=== PATIENT | male | born 1950 | race American Indian/Alaskan Native ===

== ENCOUNTER 2020-07-03 09:49 | Day surgery (SDC) | payer MEDICARE ==
[2020-07-03] MEDS ORDERED: SODIUM CHLORIDE 0.9% 500 ML 0 ML ONE (10:55)
[2020-07-03 11:07] LABS: Basophils # (Auto) 0.1 K/mm3 (0.0-0.1); Basophils % (Auto) 1.1 % (0.0-1.8); Eosinophils # (Auto) 0.2 K/mm3 (0.0-0.4); Hematocrit 27.6 % (35.5-45.6); Hemoglobin 9.2 gm/dl (11.8-15.2); Lymphocytes % (Auto) 12.1 % (13.4-35.0); Mean Corpuscular HGB Conc 33 % (32-34); Mean Corpuscular Volume 90 fl (84-94); Monocytes % (Auto) 11.2 % (0.0-7.3); Platelet Count 216 K/mm3 (140-440); Red Blood Count 3.08 M/mm3 (3.65-5.03); Red Cell Distribution Width 16.4 % (13.2-15.2)
[2020-07-03 11:17] LABS: INR 1.15 (0.87-1.13)
[2020-07-03 11:18] LABS: Partial Thromboplastin Time 35.4 Sec. (24.2-36.6)
[2020-07-03 11:23] LABS: Calcium 8.9 mg/dL (8.4-10.2)
[2020-07-03] MEDS ORDERED: HEPARIN/NS 5000 UNIT/500ML 1,000 ML IR ONE (11:59)
[2020-07-03] MEDS ORDERED: ALBUTEROL 2.5 MG/3 ML NEBU IH ONE ×2 (12:00→12:02)
[2020-07-03] MEDS ORDERED: ceFAZolin/Water 2 GM/20 ML 0 GM/0 ML SYRINGE IV ONE (12:00)
[2020-07-03] MEDS ORDERED: SODIUM CHLORIDE 0.9% 500 ML 500 ML ONE (12:00)
[2020-07-03] MEDS ORDERED: LIDOCAINE (2%) 20 MG/1 ML VIAL 20 ML MDV INFILTRATI ONE (12:01)
[2020-07-03] MEDS ORDERED: HYDROmorphone 1 MG/1 ML INJ ONE (12:10)
[2020-07-03] MEDS ORDERED: MIDAZOLAM 2 MG/2 ML INJ ONE (12:10)
[2020-07-03] MEDS ORDERED: LIDOCAINE MPF (2%) 20 MG/1 ML VIAL 5 ML ONE (12:15)
[2020-07-03] MEDS: HEPARIN 10,000 UNITS/10 ML VIAL ONE ×3 (13:28→13:44)
[2020-07-03] MEDS ORDERED: SODIUM CHLORIDE 0.9% 1000 ML 1,000 ML ONE (13:57)
[2020-07-03] MEDS ORDERED: VERAPAMIL 5 MG/2 ML INJ ONE (13:57)
[2020-07-03] MEDS ORDERED: NITROGLYCERIN DRIP 50 MG/250 ML BOTTLE ONE (13:57)
[2020-07-03] MEDS: PROTAMINE SULFATE 50 MG/5 ML INJ ONE ×2 (14:42→14:43)
--- NOTE | 2020-07-03 15:00 | Post Operative Note ---
Date of procedure: 07/03/20 Pre-op diagnosis: Left Lower Extremity Critical Limb Ischemia Post-op diagnosis: same Findings: Aorto-iliac system patent bilaterally, left common femoral, profunda femoral, superficial femoral and P1 segment of the popliteal artery widely patent. Complete total occlusion of the P2 segment of the popliteal artery with reconstitution of the P3 segment of the popliteal artery. Origin of the TP trunk and AT patent with complete total occlusion of the proximal AT and proximal peroneal artery. 90% stenosis of the proximal PT with 1 vessel runoff to the foot via the PT with patent plantar vessels in the foot. Procedure: 1. Right common femoral artery access via ultrasound guidance 2. Diagnostic Aortogram with supervision and interpretation 3. Left Lower Extremity Angiogram with 3rd Order Catheter placement 4. Left Popliteal and Posterior Tibial Athrectomy using 1.5 CSI orbital atherectomy device 5. Left Popliteal Angioplasty using 5 x 80 mm balloon 6. Left Posterior Tibial Angioplasty using 3 x 150 mm balloon 7. Mynx closure of right femoral artery access Anesthesia: MAC, local Surgeon: KELLY DEL RIO Estimated blood loss: minimal Pathology: none Condition: stable Disposition: observation
--- NOTE | 2020-07-03 15:14 | Short Stay Summary ---
Short Stay Documentation Date of service: 07/03/20 - History H&P: obtained from office Past Medical History: diabetes, ESRD, heart failure, hypertension - Allergies and Medications Current Medications: Allergies No Known Allergies Allergy (Unverified 11/19/14 07:56) Home Medications Medication Instructions Recorded Confirmed Last Taken Type ALPRAZolam [Xanax TAB] 0.5 mg PO 3XW 07/03/20 07/03/20 Unknown History Apixaban [Eliquis] 5 mg PO BID 07/03/20 07/03/20 05/17/20 History 1 tab B Complex with Vitamin C [Vitamin 1 each PO DAILY 07/03/20 07/03/20 Unknown History B-Complex with Vit C] Benzonatate [Tessalon Perles] 100 mg PO Q8HR 07/03/20 07/03/20 Unknown History Cinacalcet [Sensipar] 30 mg PO QDAY 07/03/20 07/03/20 Unknown History Ipratropium/Albuterol Sulfate 1 ampul IH Q6HR 07/03/20 07/03/20 07/03/20 11:50 History [DUONEB *Not for PRN Use*] Metoprolol [Lopressor] 100 mg PO BID 07/03/20 07/03/20 Unknown History Omeprazole 40 mg PO DAILY 07/03/20 07/03/20 Unknown History - Physical exam General appearance: no acute distress HEENT: Atraumatic Lungs: Normal air movement Heart: Regular rate Extremities: no ischemia - Hospital course Hospital course: the patient was taken to the cardiac catheterization technician and had a left leg angiogram performed. please refer to the operative note concerning details of the procedure. the patient tolerated the procedure well and was discharged home in stable condition. - Disposition Condition at discharge: Stable Disposition: [id number] SNF [facility]
[2020-07-03] MEDS ORDERED: CLOPIDOGREL 300 MG TAB PO ONE (15:19)
--- NOTE | 2020-07-03 15:36 | Anesthesia Consultation ---
Anesthesia Consult and Med Hx Date of service: 07/03/20 - Airway Anesthetic Teeth Evaluation: Poor ROM Head & Neck: Adequate Mental/Hyoid Distance: Inadequate Mallampati Class: Class III Intubation Access Assessment: Possibly Difficult - Pulmonary Exam CTA: No (coarse expiratory breath sounds which cleared with cough) - Cardiac Exam Cardiac Exam: RRR - Pre-Operative Health Status ASA Pre-Surgery Classification: ASA4 Proposed Anesthetic Plan: MAC - Pulmonary Hx Smoking: Yes COPD: Yes (no inhaler use since 2019) Home Oxygen Therapy: No - Cardiovascular System Hx Hypertension: Yes Hx Coronary Artery Disease: Yes Hx Percutaneous Transluminal Coronary Angioplasty (PTCA): Yes (2019) Hx Cardia Arrhythmia: No Hx Pacemaker: No Hx Internal Defibrillator: No - Central Nervous System CVA: No - Gastrointestinal Hx Gastroesophageal Reflux Disease: No - Endocrine Hx End Stage Renal Disease: Yes (last HD 07/02/20) Hx Liver Disease: No Hx Insulin Dependent Diabetes: Yes Hx Thyroid Disease: No - Hematic Hx Anemia: Yes - Other Systems Hx Obesity: Yes (BMI 36) - Additional Comments Anesthesia Medical History Comments: Cardiology eval on chart. Patient noted to be moderate increased risk for planned procedure given "mildly positive" stress test results. No further ischemic work up was recommended. Noted normal EF on most recent TTE. Cardiology studies not available for review. On Eliquis for hx DVT; held x1wk. Will give albuterol neb preprocedure.
--- NOTE | 2020-07-03 15:37 | Post Anesthesia Evaluation ---
- Post Anesthesia Evaluation Patient Participated: Yes Airway Patent: Yes Stable Respiratory Function: Yes Nausea/Vomiting: No Temp > 96.8F: Yes Pain Manageable: Yes Adequeate Hydration: Yes Anesthesia Complications: No
--- NOTE | 2020-07-03 15:37 | Anesthesia Day of Surgery ---
Anesthesia Day of Surgery - Day of Surgery Patient Examined: Yes Patient H&P Reviewed: Yes Patient is NPO: Yes Beta Blockers: Yes (took home dose metoprolol today AM) Cardiac Clearance: Yes
--- NOTE | 2020-07-03 15:59 | Operative Report ---
STAFF SURGEON: Dr. Ralph Loya. PREOPERATIVE DIAGNOSIS: Left lower extremity critical limb ischemia. POSTOPERATIVE DIAGNOSIS: Left lower extremity critical limb ischemia. PROCEDURE PERFORMED: 1. Right common femoral artery access via ultrasound guidance. 2. Diagnostic aortogram with supervision and interpretation. 3. Left lower extremity diagnostic angiogram with third order catheter placement with supervision and interpretation. 4. Left popliteal and posterior tibial atherectomy using a 1.5 CSI orbital atherectomy device. 5. Left popliteal angioplasty using a 5 x 80 mm balloon. 6. Left posterior tibial angioplasty using a 3 x 150 mm balloon. 7. Mynx closure device of the right femoral artery access. COMPLICATIONS: None. ESTIMATED BLOOD LOSS: Less than 10 mL. ANESTHESIA: Local MAC. ANGIOGRAPHIC FINDINGS: The aortoiliac system was patent bilaterally. The left common femoral, profunda femoral, superficial femoral and the P1 segment of the popliteal artery was widely patent. There was a complete total occlusion of the P2 segment of the popliteal artery with reconstitution of the P3 segment of the popliteal artery. The origin of the tibioperoneal trunk and anterior tibial artery were patent with a complete total occlusion of the proximal anterior tibial artery and proximal peroneal artery. There was a 90% stenosis of the proximal posterior tibial artery with a 1-vessel runoff to the foot via the posterior tibial artery with plantar vessels patent in the foot. INDICATIONS FOR PROCEDURE: This is a 70-year-old gentleman with multiple medical problems including end-stage renal disease, diabetes mellitus, CHF and significant peripheral vascular disease, who presented with gangrenous changes to the left second toe. The patient had a workup, which demonstrated significant infrainguinal peripheral arterial disease and therefore, the patient was recommended to undergo diagnostic imaging with possible intervention. The patient was explained of the risks, benefits and alternatives of procedure, expressed understanding and wished to proceed with a potential limb salvage. DESCRIPTION OF PROCEDURE: After appropriate consent was obtained, the patient was brought back to the greenskeeper laborer, placed on the table in a supine position. The patient was given appropriate medication for deep sedation by anesthesia. Both groins and the left foot were prepped and draped in the usual sterile fashion. Appropriate time-out was performed, indicating the correct patient, procedure and site of the procedure. We then began the intervention by obtaining a percutaneous access of the right common femoral artery using a micropuncture technique under ultrasound guidance. Once we obtained access, needle was exchanged for a micropuncture sheath using Seldinger technique. This was then upsized to a 5-Honduran sheath over a stiff J wire. We then proceeded to place a Glidewire and an Omniflush catheter into the infrarenal aorta. The Glidewire was removed and a diagnostic aortogram was performed, which demonstrated the findings noted above. We then proceeded to cannulate the left iliac system with a combination of the Glidewire and Omniflush catheter. Once the catheter was advanced into the distal external iliac artery, then this wire was removed and a series of diagnostic imaging of the left lower extremity was performed, which demonstrated the findings noted above. To get a better visualization of the tibial runoff, the Glidewire was advanced back into the popliteal artery and the angled catheter was advanced over the wire into the distal superficial femoral artery. Then, again a series of diagnostic imaging was performed to get adequate visualization of the tibial runoff. The patient was then given unfractionated heparin intravenously and ACTs were obtained throughout the remainder of the case for adequate anticoagulation. After appropriate time had elapsed, we then proceeded to place an Amplatz wire into the popliteal artery. The catheter was removed as well as the 5-Honduran sheath and then a 6-Honduran x 90 cm sheath was then advanced over the bifurcation into the distal superficial femoral artery. The wire and dilator were removed. We then proceeded to first attempted to cross the lesion using a V18 and TrailBlazer catheter, which was successful. Then, a combination of the Gladius wire and angled catheter were used to engage the lesion and then a combination of the Gladius and TrailBlazer were then used to cross the lesion. Diagnostic imagings were performed, which demonstrated we were within the true lumen. The wire was then exchanged for a Viper wire. Then, the CSI orbital atherectomy device was brought on the field and prepped appropriately, was placed right above the lesion in the popliteal artery. We then proceeded to perform orbital atherectomy of the popliteal and posterior tibial artery. The popliteal was performed under low, medium and high settings and the posterior tibial artery was treated under low and medium settings. We then proceeded to bring a 3 x 150 mm balloon on the field and proceeded to a balloon angioplasty of the posterior tibial artery under low pressure and was held for approximately 3 minutes to profile. Then, a 5 x 80 balloon was then brought on the field and placed across the lesion in the popliteal artery and again was insufflated under low pressure and held for 3 minutes to profile. Then, a completion angiogram was performed, which demonstrated a less than 10% residual stenosis with good runoff. Then, a 5 x 80 mm drug-coated balloon, Impact, was brought on the field, adequately prepped and placed across the lesion in the popliteal artery. This was insufflated to profile and held for approximately 3 minutes. Once that was complete, the balloon was removed and again a completion angiogram was performed demonstrating a less than 10% residual stenosis with intact and improved runoff to the foot. Once complete, our wires and catheters were removed. The long 6-Honduran sheath was exchanged for a short 6-Honduran sheath over an Amplatz wire. We then proceeded to deploy a Mynx closure device, which deployed adequately and then further hemostasis was obtained with digital compression. Once we were satisfied with hemostasis, appropriate dressing was placed. The patient tolerated the procedure well, emerged from the deep sedation and was sent to recovery in stable condition. JOB# [id number]/[id number]
[2020-07-03 16:32] VITALS: BP 180/68
[2020-07-04] MEDS ORDERED: CLOPIDOGREL 75 MG TAB PO SCH (10:00)
== END 2020-07-03 09:50 | disposition home or self-care (01) ==
LOC: CATHLABREC 09:49
PROVIDERS: ATTEND Surgery Vascular Surgery
DX: I70.212 Atherosclerosis of native arteries of extremities with intermittent claudication, left leg (principal); I25.10 Atherosclerotic heart disease of native coronary artery without angina pectoris; J44.9 Chronic obstructive pulmonary disease, unspecified; K21.9 Gastro-esophageal reflux disease without esophagitis; I13.2 Hypertensive heart and chronic kidney disease with heart failure and with stage 5 chronic kidney disease, or end stage renal disease; E11.22 Type 2 diabetes mellitus with diabetic chronic kidney disease; I50.9 Heart failure, unspecified; N18.6 End stage renal disease; E78.00 Pure hypercholesterolemia, unspecified; E66.9 Obesity, unspecified; Z79.899 Other long term (current) drug therapy; Z95.5 Presence of coronary angioplasty implant and graft; Z98.890 Other specified postprocedural states; Z86.711 Personal history of pulmonary embolism; Z87.891 Personal history of nicotine dependence; Z86.2 Personal history of diseases of the blood and blood-forming organs and certain disorders involving the immune mechanism; Z68.36 Body mass index [BMI] 36.0-36.9, adult
CPT/HCPCS: 36415; 37225; 37229; 75625; 75710; 76937; 80048; 82962; 85025; 85610; 85730; 94640; C1724; C1725; C1760; C1769; C1887; C1894; C2623; J1170; J1644; J2250; J2704; J2720; J7030; J7040; J0690; Q9967